=== PATIENT | male | born 1990 | race African-American/Black ===

== ENCOUNTER 2018-11-20 14:54 | Emergency (ER) | payer SELFPAY ==
[~2018-11-20] VITALS: Ht 182.9 cm; Wt 77.0 kg
[2018-11-20] MEDS ORDERED: BACITRACIN ZINC OINT UDPKT TOP ONE (15:30)
[2018-11-20] MEDS ORDERED: HYDROCODONE/ACETAMINOPHEN 5/325MG TABLET PO ONE (15:30)
[2018-11-20] MEDS ORDERED: IBUPROFEN 800MG TABLET PO ONE (15:45)
[2018-11-20 16:15] VITALS: BP 123/74
== END 2018-11-20 16:15 | disposition home or self-care (01) ==
LOC: ER 14:54
DX: S68.122A Partial traumatic metacarpophalangeal amputation of right middle finger, initial encounter (principal); W19.XXXA Unspecified fall, initial encounter; Y93.89 Activity, other specified; Y92.69 Other specified industrial and construction area as the place of occurrence of the external cause; Y99.8 Other external cause status
CPT/HCPCS: 99283